=== PATIENT | male | born 1965 | race American Indian/Alaskan Native ===

== ENCOUNTER 2024-02-03 15:20 | Emergency (ER) | payer BC, OTHER ==
[2024-02-03 15:24] VITALS: BP 142/80; PULSE 69; RESP 18; TEMP 97.8; BMI 28.3
[2024-02-03 16:18] LABS: EPI CELLS 1 /uL (0-25.1); HYALINE CASTS 0 /uL (0-3.1); URINE APPEARANCE CLEAR; URINE BACTERIA 6 /uL (0-1359); URINE BILIRUBIN NEGATIVE (NEGATIVE); URINE COLOR RED; URINE GLUCOSE (UA) NEGATIVE (NEGATIVE); URINE KETONE NEGATIVE (NEGATIVE); URINE LEUK ESTERASE NEGATIVE (NEGATIVE); URINE NITRITE NEGATIVE (NEGATIVE); URINE PROTEIN 1+ (NEGATIVE); URINE RBC 6473 /uL (0-23.9); URINE UROBILINOGEN 0.2 mg/dL (0.2-1.0); URINE WBC 24 /uL (0-25.8)
[2024-02-03 16:35] LABS: BASO % 0.5 % (0-2.0); EOS % 4.2 % (0-4.5); HEMATOCRIT 44.6 % (35.4-49); HEMOGLOBIN 15.8 GM/dL (11.7-16.9); LYMPH % 30.1 % (8-40); MCH 29.5 pg (25.7-33.7); MCHC 35.4 g/dl (32.0-35.9); MEAN CELL VOLUME 83.5 fl (80-96); MONO % 6.9 % (3.8-10.2); NEUT % 58.3 % (42.8-82.8); PLATELET COUNT 311 10^3/uL (134-434); RBC 5.34 M/mm3 (4.00-5.60); RDW 13.7 % (11.9-15.9); WHITE BLOOD COUNT 12.9 K/mm3 (4.0-10.0)
[2024-02-03 16:53] LABS: POTASSIUM 4.3 mmol/L (3.5-5.1)
[2024-02-03 16:56] LABS: ALBUMIN 3.8 g/dl (3.4-5.0); CALCIUM 9.1 mg/dL (8.5-10.1)
[2024-02-03 16:58] LABS: CREATININE 1.2 mg/dL (0.55-1.3)
[2024-02-03 17:00] LABS: BILIRUBIN,TOTAL 0.4 mg/dL (0.2-1); TOT PROT 7.6 g/dl (6.4-8.2)
[2024-02-03] MEDS ORDERED: TAMSULOSIN HCL 0.4 MG CAP ONE (17:56)
[2024-02-03] MEDS ORDERED: KETOROLAC TROMETHAMINE 15 MG/ML VIAL ONE (17:57)
[2024-02-03] MEDS: KETOROLAC TROMETHAMINE 15 MG/ML VIAL IVPUSH ONE (18:03)
[2024-02-03] MEDS: TAMSULOSIN HCL 0.4 MG CAP PO ONE (18:04)
[2024-02-03] MEDS: SODIUM CHLORIDE 0.9% 500 ML INFUS.BAG IV ONE (18:04)
== END 2024-02-03 19:36 | disposition home or self-care (01) ==
LOC: JER 15:20
PROC: 3E0303Z Introduction of Anti-inflammatory into Peripheral Vein, Open Approach (ICD-10-PCS; principal; 2024-02-03)
DX: N13.2 Hydronephrosis with renal and ureteral calculous obstruction (principal)
CPT/HCPCS: 36415; 71046-TC-FY; 74176-TC; 80053; 81003; 82550; 84484; 85025; 87086; 93005; 93010; 99285-25

== ENCOUNTER 2024-02-05 20:02 | Inpatient (IN) | payer BC, OTHER ==
[2024-02-05] MEDS ORDERED: ONDANSETRON 4 MG/2 ML VIAL ONE (20:52)
[2024-02-05] MEDS ORDERED: ACETAMINOPHEN INJECTION 100 ML IVPB ONE (20:52)
[2024-02-05] MEDS: LACTATED RINGERS SOLUTION 1000 ML INFUS.BAG IV ONE (21:26)
[2024-02-05] MEDS: ACETAMINOPHEN 1000 MG/100 ML BAG IVPB ONE (21:27)
[2024-02-05] MEDS: ONDANSETRON 4 MG/2 ML VIAL IVPUSH ONE (21:27)
[2024-02-05 21:35] LABS: BASO % 0.1 % (0-2.0); EOS % 0.1 % (0-4.5); HEMATOCRIT 40.3 % (35.4-49); LYMPH % 12.3 % (8-40); MCH 29.2 pg (25.7-33.7); MCHC 34.7 g/dl (32.0-35.9); MEAN CELL VOLUME 83.9 fl (80-96); MEAN PLT VOLUME 8.6 fl (7.5-11.1); MONO % 8.3 % (3.8-10.2); NEUT % 79.2 % (42.8-82.8); PLATELET COUNT 270 10^3/uL (134-434); RDW 13.7 % (11.9-15.9); WHITE BLOOD COUNT 17.1 K/mm3 (4.0-10.0)
[2024-02-05 21:38] LABS: EPI CELLS 1 /uL (0-25.1); HYALINE CASTS 0 /uL (0-3.1); PH,URINE 5.5 (5.0-8.0); URINE APPEARANCE CLEAR; URINE BACTERIA 0 /uL (0-1359); URINE BILIRUBIN NEGATIVE (NEGATIVE); URINE COLOR YELLOW; URINE GLUCOSE (UA) NEGATIVE (NEGATIVE); URINE KETONE NEGATIVE (NEGATIVE); URINE LEUK ESTERASE NEGATIVE (NEGATIVE); URINE NITRITE NEGATIVE (NEGATIVE); URINE PROTEIN NEGATIVE (NEGATIVE); URINE RBC 13 /uL (0-23.9); URINE UROBILINOGEN 0.2 mg/dL (0.2-1.0); URINE WBC 6 /uL (0-25.8)
[2024-02-05 21:41] LABS: INR 1.18 (0.83-1.09); PROTHROMBIN TIME (PATIENT) 13.3 SEC (9.7-13.0)
[2024-02-05 21:44] LABS: ACTIVATED PTT 33.1 SECONDS (25.2-36.5)
[2024-02-05 21:56] LABS: POTASSIUM 4.6 mmol/L (3.5-5.1)
[2024-02-05 21:59] LABS: ALBUMIN 3.6 g/dl (3.4-5.0); BLOOD UREA NITROGEN 18.5 mg/dL (7-18); CALCIUM 9.8 mg/dL (8.5-10.1)
[2024-02-05 22:02] LABS: CREATININE 2.2 mg/dL (0.55-1.3)
[2024-02-05 22:04] LABS: TOT PROT 7.1 g/dl (6.4-8.2)
[2024-02-06] MEDS ORDERED: CEFTRIAXONE 1 GM/50 ML BAG ONE (00:31)
[2024-02-06] MEDS: TAMSULOSIN HCL 0.4 MG CAP PO SCH ×2 (00:47→21:41)
[2024-02-06] MEDS: CEFTRIAXONE 1,000 MG in DEXTROSE 5%-WATER - 50 ML IVPB ONE (00:47)
[2024-02-06] MEDS: SODIUM CHLORIDE 1,000 ML IV SCH (02:57)
[2024-02-06 03:40] VITALS: BMI 28.5
[2024-02-06] MEDS: HEPARIN NA (PORCINE) 5,000 UNITS/ML 1ML VIAL SQ SCH (06:11)
[2024-02-06] MEDS: ACETAMINOPHEN 500 MG TABLET (FP) PO ONE (06:11)
[2024-02-06 08:18] LABS: POTASSIUM 4.1 mmol/L (3.5-5.1)
[2024-02-06 08:20] LABS: CALCIUM 8.5 mg/dL (8.5-10.1)
[2024-02-06 08:21] LABS: ALBUMIN 3.2 g/dl (3.4-5.0); BLOOD UREA NITROGEN 19.5 mg/dL (7-18); MAGNESIUM 2.1 mg/dL (1.8-2.4)
[2024-02-06 08:24] LABS: CREATININE 1.7 mg/dL (0.55-1.3); PHOSPHOROUS 2.4 mg/dL (2.5-4.9)
[2024-02-06 08:25] LABS: TOT PROT 6.3 g/dl (6.4-8.2)
[2024-02-06 08:26] LABS: BASO % 0.1 % (0-2.0); EOS % 0.2 % (0-4.5); HEMATOCRIT 37.3 % (35.4-49); HEMOGLOBIN 13.3 GM/dL (11.7-16.9); LYMPH % 12.1 % (8-40); MCH 29.7 pg (25.7-33.7); MCHC 35.5 g/dl (32.0-35.9); MEAN CELL VOLUME 83.7 fl (80-96); MEAN PLT VOLUME 9.5 fl (7.5-11.1); MONO % 8.9 % (3.8-10.2); NEUT % 78.7 % (42.8-82.8); PLATELET COUNT 250 10^3/uL (134-434); RBC 4.46 M/mm3 (4.00-5.60); RDW 13.4 % (11.9-15.9); WHITE BLOOD COUNT 13.3 K/mm3 (4.0-10.0)
[2024-02-06] MEDS: CEFTRIAXONE 1 GM in DEXTROSE 5%-WATER - 50 ML IVPB SCH (09:24)
[2024-02-06] MEDS: SODIUM CHLORIDE 0.9% 500 ML INFUS.BAG IV ONE (10:00)
[2024-02-06] MEDS ORDERED: BISACODYL 10 MG SUPP.RECT PR PRN (11:54)
[2024-02-06] MEDS ORDERED: SODIUM CHLORIDE 0.9% 500 ML INFUS.BAG IV ONE (11:56)
[2024-02-06] MEDS: SENNOSIDES 8.6MG TABLET (FP) PO SCH (12:56)
[2024-02-06] MEDS: DOCUSATE SODIUM 100 MG CAPSULE (FP) PO SCH (12:56)
[2024-02-06] MEDS: POLYETHYLENE GLYCOL (HEALTHYLAX) 3350 17 GM PACKET PO SCH (12:56)
[2024-02-06] MEDS: ACETAMINOPHEN 1000 MG/100 ML BAG IVPB PRN (14:15)
[2024-02-06] MEDS: SODIUM CHLORIDE 1,000 ML IV ONE (15:32)
[2024-02-07] MEDS ORDERED: FENTANYL CITRATE/PF 50 MCG/ML VIAL ONE (06:33)
[2024-02-07] MEDS ORDERED: PROPOFOL 20 ML ONE (06:33)
[2024-02-07] MEDS ORDERED: MIDAZOLAM HCL 2 MG/2 ML SINGLE DOSE VIAL ONE (06:33)
[2024-02-07] MEDS: ceFAZolin SODIUM 1 GM VIAL IVPB ONE (06:55)
[2024-02-07] MEDS: GENTAMICIN SO4 80 MG/2 ML VIAL IVPB ONE (06:55)
[2024-02-07] MEDS ORDERED: ceFAZolin SODIUM 1 GM VIAL ONE (06:57)
[2024-02-07] MEDS ORDERED: GENTAMICIN SO4 80 MG/2 ML VIAL ONE (06:57)
[2024-02-07] MEDS ORDERED: LIDOCAINE HCL/PF 2% SDV 5ML VIAL ONE (07:27)
[2024-02-07] MEDS ORDERED: DEXAMETHASONE SOD PHOSPHATE 4 MG/1 ML VIAL ONE (07:27)
[2024-02-07] MEDS ORDERED: ONDANSETRON 4 MG/2 ML VIAL ONE (07:27)
[2024-02-07] MEDS ORDERED: ONDANSETRON 4 MG/2 ML VIAL IVPUSH PRN (07:32)
[2024-02-07] MEDS ORDERED: ACETAMINOPHEN INJECTION 100 ML IVPB ONE (07:34)
[2024-02-07] MEDS: ACETAMINOPHEN 1000 MG/100 ML BAG IVPB ONE (07:40)
[2024-02-07] MEDS: ACETAMINOPHEN 1000 MG/100 ML BAG IVPB PRN (07:40)
[2024-02-07] MEDS ORDERED: BISACODYL 10 MG SUPP.RECT PR PRN (07:41)
[2024-02-07] MEDS: LACTATED RINGERS SOLUTION 1,000 ML IV SCH (07:53)
[2024-02-07 09:32] VITALS: BP 127/76; PULSE 65; RESP 18; TEMP 98.4
[2024-02-07] MEDS: CEFTRIAXONE 1 GM in DEXTROSE 5%-WATER - 50 ML IVPB SCH (10:04)
[2024-02-07 11:59] LABS: HEMATOCRIT 40.1 % (35.4-49); HEMOGLOBIN 13.8 GM/dL (11.7-16.9); MCH 29.4 pg (25.7-33.7); MCHC 34.5 g/dl (32.0-35.9); MEAN CELL VOLUME 85.2 fl (80-96); PLATELET COUNT 255 10^3/uL (134-434); RDW 13.5 % (11.9-15.9); WHITE BLOOD COUNT 10.4 K/mm3 (4.0-10.0)
[2024-02-07 12:24] LABS: POTASSIUM 3.9 mmol/L (3.5-5.1)
[2024-02-07 12:26] LABS: BLOOD UREA NITROGEN 18.2 mg/dL (7-18); CALCIUM 9.3 mg/dL (8.5-10.1)
[2024-02-07 12:27] LABS: MAGNESIUM 2.4 mg/dL (1.8-2.4)
[2024-02-07 12:28] LABS: ALBUMIN 3.4 g/dl (3.4-5.0)
[2024-02-07 12:30] LABS: CREATININE 1.6 mg/dL (0.55-1.3); PHOSPHOROUS 2.4 mg/dL (2.5-4.9)
[2024-02-07 12:31] LABS: BILIRUBIN,TOTAL 0.4 mg/dL (0.2-1)
[2024-02-07 12:32] LABS: TOT PROT 7.1 g/dl (6.4-8.2)
== END 2024-02-07 13:43 | disposition home or self-care (01) | DRG 854 ==
LOC: JER 20:02 → JERBED 02-06 00:25 → J5S 02-06 03:11
PROVIDERS: ADMIT Student in an Organized Health Care Education/Training Program; ATTEND Internal Medicine
PROC: 0T768DZ Dilation of Right Ureter with Intraluminal Device, Via Natural or Artificial Opening Endoscopic (ICD-10-PCS; principal; 2024-02-07 06:30)
PROC: BT1DZZZ Fluoroscopy of Right Kidney, Ureter and Bladder (ICD-10-PCS; 2024-02-07 06:30)
DX: A41.9 Sepsis, unspecified organism (principal); E87.20 Acidosis, unspecified; N13.6 Pyonephrosis; N17.9 Acute kidney failure, unspecified; K59.00 Constipation, unspecified
CPT/HCPCS: 36415; 71045-TC-FY; 74176-TC; 76000-TC-FY; 76775-TC; 80048; 80053; 81003; 83605; 83690; 83735; 84100; 84133; 84300; 85025; 85027; 85610; 85730; 86850; 86900; 86901; 87040; 87086; 93005; 93010; 94760; 99285-25; C1758; C2617; J0131; J1644